=== PATIENT | female | born 1960 | race Caucasian/White ===

== ENCOUNTER 2017-12-12 09:55 | Emergency (ER) | payer OTHER, MEDICAID ==
[~2017-12-12] VITALS: Ht 167.6 cm; Wt 74.8 kg
[2017-12-12 09:59] VITALS: Ht 167.6 cm; Wt 74.8 kg
[2017-12-12] MEDS ORDERED: RIZATRIPTAN BENZ5 MG PO (10:18)
[2017-12-12] MEDS ORDERED: COQ1050 MG (10:18)
[2017-12-12] MEDS ORDERED: TRAZODONE50 M1 PO (10:19)
[2017-12-12] MEDS ORDERED: NORTRIPTYLINE H10 MG PO ×2 (10:20→10:23)
[2017-12-12] MEDS ORDERED: ONDANSETRON4 M3 PO (10:20)
[2017-12-12] MEDS ORDERED: LOVASTATIN20 MG PO (10:21)
[2017-12-12] MEDS ORDERED: GOOD NEIGHBOR M25 MG PO (10:21)
[2017-12-12] MEDS ORDERED: OXYCODONE HYDRO30 MG PO (10:22)
[2017-12-12] MEDS ORDERED: PROCHLORPERAZIN10 MG PO (10:22)
[2017-12-12] MEDS ORDERED: BONIVA150 M1 (10:23)
[2017-12-12] MEDS ORDERED: MORPHINE SULFAT15 MG PO (10:23)
[2017-12-12] MEDS ORDERED: PROL (10:24)
[2017-12-12 11:45] LABS: CALCIUM 9.2 mg/dL (8.5-10.1); CHLORIDE SERUM 108 mmol/L (98-107); CREATININE SERUM 0.8 mg/dL (0.6-1.0); GFR1 > 60 mL/min; GLUCOSE SERUM 144 mg/dL (74-106); POTASSIUM SERUM 4.6 mmol/L (3.5-5.1); SODIUM SERUM 139 mmol/L (136-145)
[2017-12-12 11:47] LABS: BASOPHIL % 0 % (0-2); PLATELET COUNT 278 x10^3mcL (130-400); RED CELL DISTRIBUTION WIDTH 12.4 % (11.5-14.5)
[2017-12-12 11:50] LABS: ALBUMIN 3.7 g/dL (3.4-5.0); ALKALINE PHOSPHATASE 72 U/L (46-116); ALT/SGPT 24 U/L (14-59); AST/SGOT 18 U/L (15-37); BILIRUBIN TOTAL 0.44 mg/dL (0.20-1.00); LIPASE 98 IU/L (73-393); TOTAL PROTEIN, SERUM 7.6 g/dL (6.4-8.2)
[2017-12-12 13:45] VITALS: BP 149/89
== END 2017-12-12 13:45 | disposition home or self-care (01) ==
LOC: ED 09:55
PROVIDERS: Emergency Medicine
DX: K31.89 Other diseases of stomach and duodenum (principal); R11.10 Vomiting, unspecified; F17.210 Nicotine dependence, cigarettes, uncomplicated; G90.50 Complex regional pain syndrome I, unspecified; G89.29 Other chronic pain; M79.604 Pain in right leg
CPT/HCPCS: 99406; J1630; J2270; J2765; J7030

== ENCOUNTER 2017-12-14 12:49 | Emergency (ER) | payer OTHER, MEDICAID ==
[~2017-12-14] VITALS: Ht 167.6 cm; Wt 72.6 kg
[~2017-12-14 12:49] MED LIST: BONIVA150 M1; COQ1050 MG; GOOD NEIGHBOR M25 MG PO; LOVASTATIN20 MG PO; MORPHINE SULFAT15 MG PO; NORTRIPTYLINE H10 MG PO; ONDANSETRON4 M3 PO; OXYCODONE HYDRO30 MG PO; PROCHLORPERAZIN10 MG PO; PROL; RIZATRIPTAN BENZ5 MG PO; TRAZODONE50 M1 PO
[2017-12-14 12:58] VITALS: Ht 167.6 cm; Wt 72.6 kg
[2017-12-14 13:27] LABS: BASOPHIL % 0.4 % (0-2); PLATELET COUNT 270 x10^3mcL (130-400); RED CELL DISTRIBUTION WIDTH 12.4 % (11.5-14.5)
[2017-12-14 13:32] LABS: CALCIUM 9.2 mg/dL (8.5-10.1); CARBON DIOXIDE 24.1 mmol/L (21-32); CHLORIDE SERUM 103 mmol/L (98-107); CREATININE SERUM 0.8 mg/dL (0.6-1.0); GFR1 > 60 mL/min; GLUCOSE SERUM 145 mg/dL (74-106); SODIUM SERUM 141 mmol/L (136-145)
[2017-12-14 13:37] LABS: ALKALINE PHOSPHATASE 80 U/L (46-116); ALT/SGPT 29 U/L (14-59); AST/SGOT 23 U/L (15-37); BILIRUBIN TOTAL 0.62 mg/dL (0.20-1.00)
[2017-12-14 16:07] VITALS: BP 175/81
== END 2017-12-14 17:20 | disposition home or self-care (01) ==
LOC: ED 12:49
PROVIDERS: Emergency Medicine
DX: G43.A0 Cyclical vomiting, in migraine, not intractable (principal); F17.210 Nicotine dependence, cigarettes, uncomplicated; G90.50 Complex regional pain syndrome I, unspecified; Z88.6 Allergy status to analgesic agent
CPT/HCPCS: J2405; J7030

== ENCOUNTER 2018-02-24 11:07 | Emergency (ER) | payer OTHER, MEDICAID ==
[~2018-02-24] VITALS: Ht 167.6 cm; Wt 77.1 kg
[2018-02-24 11:13] VITALS: Ht 167.6 cm; Wt 77.1 kg
[2018-02-24 13:50] LABS: BASOPHIL % 0.2 % (0-2); PLATELET COUNT 269 x10^3mcL (130-400); RED CELL DISTRIBUTION WIDTH 12.9 % (11.5-14.5)
[2018-02-24 14:13] LABS: ALBUMIN 3.8 g/dL (3.4-5.0); ALKALINE PHOSPHATASE 68 U/L (46-116); ALT/SGPT 25 U/L (14-59); AST/SGOT 20 U/L (15-37); BILIRUBIN TOTAL 0.62 mg/dL (0.20-1.00); CALCIUM 8.3 mg/dL (8.5-10.1); CARBON DIOXIDE 26.7 mmol/L (21-32); CHLORIDE SERUM 100 mmol/L (98-107); CREATININE SERUM 0.9 mg/dL (0.6-1.0); GFR1 > 60 mL/min; GLUCOSE SERUM 116 mg/dL (74-106); LIPASE 87 IU/L (73-393); SODIUM SERUM 134 mmol/L (136-145); TOTAL PROTEIN, SERUM 7.7 g/dL (6.4-8.2)
[2018-02-24 15:28] LABS: microscopic required? YES; urine erythrocyte NEGATIVE (NEGATIVE)
[2018-02-24 15:36] LABS: AMPHETAMINE QUAL UR NONE DETECTED (See below)
[2018-02-24 15:57] VITALS: BP 114/78
== END 2018-02-24 16:23 | disposition home or self-care (01) ==
LOC: ED 11:07
PROVIDERS: Emergency Medicine
DX: E87.6 Hypokalemia (principal); G43.A0 Cyclical vomiting, in migraine, not intractable; R10.13 Epigastric pain; F12.90 Cannabis use, unspecified, uncomplicated; G90.50 Complex regional pain syndrome I, unspecified; Z88.6 Allergy status to analgesic agent
CPT/HCPCS: J1630; J2060; J7030

== ENCOUNTER 2018-08-31 11:13 | Emergency (ER) | payer OTHER, MEDICAID ==
[~2018-08-31] VITALS: Ht 167.6 cm; Wt 79.4 kg
[2018-08-31 11:16] VITALS: Ht 167.6 cm; Wt 79.4 kg
[2018-08-31 12:28] LABS: BASOPHIL % 0.5 % (0-2); PLATELET COUNT 239 x10^3mcL (130-400); RED CELL DISTRIBUTION WIDTH 13.3 % (11.5-14.5)
[2018-08-31 12:39] LABS: CALCIUM 9.2 mg/dL (8.5-10.1); CARBON DIOXIDE 23.3 mmol/L (21-32); CHLORIDE SERUM 104 mmol/L (98-107); GFR1 > 60 mL/min; GLUCOSE SERUM 124 mg/dL (74-106); POTASSIUM SERUM 3.4 mmol/L (3.5-5.1); SODIUM SERUM 141 mmol/L (136-145)
[2018-08-31 12:43] LABS: ALBUMIN 3.8 g/dL (3.4-5.0); ALKALINE PHOSPHATASE 59 U/L (46-116); ALT/SGPT 24 U/L (14-59); AMYLASE 45 U/L (25-115); AST/SGOT 10 U/L (15-37); BILIRUBIN TOTAL 0.45 mg/dL (0.20-1.00); LIPASE 84 IU/L (73-393); TOTAL PROTEIN, SERUM 8.1 g/dL (6.4-8.2)
[2018-08-31 13:49] VITALS: BP 120/60
== END 2018-08-31 13:49 | disposition home or self-care (01) ==
LOC: ED 11:13
PROVIDERS: Emergency Medicine
DX: K31.89 Other diseases of stomach and duodenum (principal); R11.10 Vomiting, unspecified; Z88.8 Allergy status to other drugs, medicaments and biological substances
CPT/HCPCS: J1630; J3010

== ENCOUNTER 2018-09-02 10:24 | Emergency (ER) | payer OTHER, MEDICAID ==
[~2018-09-02] VITALS: Ht 167.6 cm; Wt 79.4 kg
[2018-09-02 10:30] VITALS: Ht 167.6 cm; Wt 79.4 kg
[2018-09-02 10:54] LABS: PLATELET COUNT 279 x10^3mcL (130-400); RED CELL DISTRIBUTION WIDTH 12.7 % (11.5-14.5)
[2018-09-02 11:05] LABS: CALCIUM 9.6 mg/dL (8.5-10.1); CARBON DIOXIDE 24.2 mmol/L (21-32); CHLORIDE SERUM 106 mmol/L (98-107); CREATININE SERUM 0.9 mg/dL (0.6-1.0); GFR1 > 60 mL/min; GLUCOSE SERUM 118 mg/dL (74-106); POTASSIUM SERUM 3.6 mmol/L (3.5-5.1); SODIUM SERUM 144 mmol/L (136-145)
[2018-09-02 11:15] LABS: ALBUMIN 3.7 g/dL (3.4-5.0); ALKALINE PHOSPHATASE 61 U/L (46-116); ALT/SGPT 22 U/L (14-59); AST/SGOT 9 U/L (15-37); BILIRUBIN TOTAL 0.35 mg/dL (0.20-1.00); LIPASE 113 IU/L (73-393); TOTAL PROTEIN, SERUM 7.5 g/dL (6.4-8.2)
[2018-09-02 11:18] LABS: MONOCYTE 5 % (0-7); SEGMENTED NEUTROPHILS 73 % (37-75)
[2018-09-02 11:19] LABS: PLATELET MORPHOLOGY PLATELETS NORMAL; rbc morphology (normal/abnorm) NORMAL (NORMAL)
[2018-09-02 12:48] VITALS: BP 108/70
== END 2018-09-02 13:00 | disposition home or self-care (01) ==
LOC: ED 10:24
PROVIDERS: Emergency Medicine
DX: G43.A0 Cyclical vomiting, in migraine, not intractable (principal); R10.13 Epigastric pain; Z88.8 Allergy status to other drugs, medicaments and biological substances
CPT/HCPCS: J1630; J7030

== ENCOUNTER 2019-02-19 12:28 | Emergency (ER) | payer OTHER ==
[~2019-02-19] VITALS: Ht 167.6 cm; Wt 81.6 kg
[2019-02-19 12:32] VITALS: Ht 167.6 cm; Wt 81.6 kg
[2019-02-19 13:10] LABS: BASOPHIL % 0.6 % (0-2); PLATELET COUNT 282 x10^3mcL (130-400); RED CELL DISTRIBUTION WIDTH 13.1 % (11.5-14.5)
[2019-02-19 13:12] LABS: CARBON DIOXIDE 27.2 mmol/L (21-32); CHLORIDE SERUM 104 mmol/L (98-107); CREATININE SERUM 0.8 mg/dL (0.6-1.0); GFR1 > 60 mL/min; GLUCOSE SERUM 103 mg/dL (74-106); POTASSIUM SERUM 3.9 mmol/L (3.5-5.1); SODIUM SERUM 139 mmol/L (136-145)
[2019-02-19 13:16] LABS: ALKALINE PHOSPHATASE 79 U/L (46-116); ALT/SGPT 19 U/L (14-59); AST/SGOT 10 U/L (15-37); BILIRUBIN TOTAL 0.18 mg/dL (0.20-1.00)
[2019-02-19 13:17] LABS: ALBUMIN 3.3 g/dL (3.4-5.0)
[2019-02-19 16:23] VITALS: BP 101/69
== END 2019-02-19 17:11 | disposition home or self-care (01) ==
LOC: ED 12:28
DX: R07.89 Other chest pain (principal); R11.0 Nausea; F17.210 Nicotine dependence, cigarettes, uncomplicated; Z88.5 Allergy status to narcotic agent
CPT/HCPCS: J2270; J2405; Q0092

== ENCOUNTER 2020-06-02 12:53 | Emergency (ER) | payer OTHER ==
[~2020-06-02] VITALS: Ht 167.6 cm; Wt 83.9 kg
[2020-06-02 12:56] VITALS: Ht 167.6 cm; Wt 83.9 kg
[2020-06-02 13:38] LABS: BASOPHIL % 0.7 % (0.2-1.3); PLATELET COUNT 216 x10^3mcL (179-408)
[2020-06-02 13:54] LABS: CALCIUM 9.4 mg/dL (8.5-10.1); CARBON DIOXIDE 20.8 mmol/L (21-32); CHLORIDE SERUM 102 mmol/L (98-107); CREATININE SERUM 0.8 mg/dL (0.6-1.0); GFR1 > 60 mL/min; GLUCOSE SERUM 129 mg/dL (74-106); POTASSIUM SERUM 3.9 mmol/L (3.5-5.1); SODIUM SERUM 138 mmol/L (136-145)
[2020-06-02 13:59] LABS: ALBUMIN 3.6 g/dL (3.4-5.0); ALKALINE PHOSPHATASE 76 U/L (46-116); ALT/SGPT 16 U/L (14-59); AST/SGOT 20 U/L (15-37); BILIRUBIN TOTAL 0.5 mg/dL (0.20-1.00); LIPASE 68 IU/L (73-393); TOTAL PROTEIN, SERUM 7.6 g/dL (6.4-8.2)
[2020-06-02] MEDS ORDERED: PEPCID AC20 M2 PO (15:49)
[2020-06-02] MEDS ORDERED: ONDANSETRON4 M3 PO (15:49)
[2020-06-02 18:40] VITALS: BP 162/69
== END 2020-06-02 18:40 | disposition home or self-care (01) ==
LOC: ED 12:53
PROVIDERS: Student in an Organized Health Care Education/Training Program
DX: R11.15 Cyclical vomiting syndrome unrelated to migraine (principal); Z88.5 Allergy status to narcotic agent
CPT/HCPCS: J1200; J1630; J2060; J2270; J8597